=== PATIENT | female | born 1995 | race Caucasian/White ===

== ENCOUNTER 2018-03-17 22:25 | Emergency (ER) | payer BC ==
[~2018-03-17] VITALS: Ht 157.5 cm; Wt 104.3 kg
[2018-03-17 22:31] VITALS: Ht 157.5 cm; Wt 104.3 kg
[2018-03-17 23:00] LABS: BASOPHILS 0.4 % (0-2); EOSINOPHILS 2.7 % (0-7); HEMATOCRIT 40.8 % (36.0-48.0); HEMOGLOBIN 13.6 g/dL (12-16); IMMATURE GRANULOCYTES 0.2 % (0-5); MCH 28.3 pg (26.0-34.0); MCHC 33.3 g/dL (31.0-37.0); MEAN PLATELET VOLUME 10.8 fL (7.4-10.4); MONOCYTES 7.6 % (2-11); NEUTROPHILS 67.1 % (40-80); PLATELET COUNT 276 10x3/uL (130-400); RDW 13.3 % (11.5-14.5); WBC 10.3 10x3/uL (4.8-10.8)
[2018-03-17 23:08] LABS: APTT 26.3 SECONDS (22.8-39.4); INR 0.94 (0.85-1.17); PROTIME 12.2 SECONDS (11.6-15.0)
[2018-03-17 23:24] LABS: ALBUMIN 3.6 g/dL (3.4-5.0); ALKALINE PHOSPHATASE 67 U/L (46-116); ALT (SGPT) 24 U/L (10-68); BILIRUBIN - TOTAL 0.27 mg/dL (0.2-1.3); CALC OSMOLALITY 278 mosm/kg (275-300); CALCIUM 8.6 mg/dL (8.5-10.1); CARBON DIOXIDE 28.7 mmol/L (21.0-32.0); CHLORIDE - SERUM 106 mmol/L (98-107); CREATININE - SERUM 0.8 mg/dL (0.6-1.3); GLUCOSE 120 mg/dL (74-106); POTASSIUM - SERUM 4.5 mmol/L (3.5-5.1); PROTEIN - SERUM 7.1 g/dL (6.4-8.2); SODIUM 139 mmol/L (136-145); UREA NITROGEN 12 mg/dL (7-18); eGFR NON AFRICAN AMERICAN > 90 mL/min (90-120)
[2018-03-17 23:33] LABS: CKMB 0.3 U/L (0.0-3.6); CREATINE KINASE 57 UL (21-215); PRO BNP 35 pg/mL (0-125); TROPONIN-I < 0.017 ng/mL (0.000-0.060)
[2018-03-18] MEDS ORDERED: FLUTICASONE PRO16 GM NASAL (00:34)
[2018-03-18] MEDS ORDERED: OMNICEF300 MG PO (00:34)
[2018-03-18 00:45] VITALS: BP 138/77
== END 2018-03-18 00:45 | disposition home or self-care (01) ==
LOC: D.ER 22:25
PROVIDERS: Family Medicine
DX: J01.90 Acute sinusitis, unspecified (principal); R09.89 Other specified symptoms and signs involving the circulatory and respiratory systems; R05 Cough

== ENCOUNTER 2018-05-22 22:25 | Emergency (ER) | payer SELFPAY ==
[~2018-05-22] VITALS: Ht 157.5 cm; Wt 102.3 kg
[~2018-05-22 22:25] MED LIST: FLUTICASONE PRO16 GM NASAL; OMNICEF300 MG PO
[2018-05-22 22:47] VITALS: Ht 157.5 cm; Wt 102.3 kg
[2018-05-22 23:27] LABS: HEMOGLOBIN 13.9 g/dL (12-16); LYMPHOCYTES 23.1 % (15-50); MCH 28.1 pg (26.0-34.0); MCHC 33.9 g/dL (31.0-37.0); MCV 82.8 fL (80.0-100.0); MEAN PLATELET VOLUME 10.6 fL (7.4-10.4); NEUTROPHILS 67.8 % (40-80); PLATELET COUNT 283 10x3/uL (130-400); RBC 4.95 10x6/uL (4.00-5.40); RDW 12.7 % (11.5-14.5); WBC 8.1 10x3/uL (4.8-10.8)
[2018-05-22 23:31] LABS: HCG URINE NEGATIVE (NEGATIVE)
[2018-05-22 23:35] LABS: APPEARANCE CLOUDY (CLEAR); BILIRUBIN NEGATIVE (NEGATIVE); COLOR YELLOW (YELLOW); GLUCOSE NEGATIVE (NEGATIVE); KETONE NEGATIVE (NEGATIVE); NITRITE NEGATIVE (NEGATIVE); PROTEIN NEGATIVE (NEGATIVE); UROBILINOGEN NORMAL (NORMAL)
[2018-05-22 23:37] LABS: BACTERIA MODERATE /hpf (NONE SEEN); EPITHELIAL CELLS 0-5 /hpf (0-5); MUCUS >1+ /lpf (NONE SEEN); RED CELLS - URINE 0-5 /hpf (0-5); WHITE CELLS - URINE 0-5 /hpf (0-5)
[2018-05-22 23:45] LABS: ALBUMIN 3.8 g/dL (3.4-5.0); ALKALINE PHOSPHATASE 65 U/L (46-116); ALT (SGPT) 25 U/L (10-68); BILIRUBIN - TOTAL 0.27 mg/dL (0.2-1.3); CALC OSMOLALITY 280 mosm/kg (275-300); CALCIUM 9.2 mg/dL (8.5-10.1); CARBON DIOXIDE 21.9 mmol/L (21.0-32.0); CHLORIDE - SERUM 108 mmol/L (98-107); CREATININE - SERUM 0.7 mg/dL (0.6-1.3); GLUCOSE 101 mg/dL (74-106); POTASSIUM - SERUM 3.6 mmol/L (3.5-5.1); PROTEIN - SERUM 7.4 g/dL (6.4-8.2); SODIUM 141 mmol/L (136-145); UREA NITROGEN 13 mg/dL (7-18); eGFR NON AFRICAN AMERICAN > 90 mL/min (90-120)
[2018-05-22 23:49] LABS: AMYLASE - SERUM 38 U/L (25-115); LIPASE 148 U/L (73-393)
[2018-05-22 23:50] LABS: TROPONIN-I < 0.017 ng/mL (0.000-0.060)
[2018-05-23] MEDS ORDERED: OMEPRAZOLE20 M1 PO (01:19)
[2018-05-23 01:32] VITALS: BP 138/87
== END 2018-05-23 01:32 | disposition home or self-care (01) ==
LOC: D.ER 22:25
PROVIDERS: Family Medicine
DX: K21.9 Gastro-esophageal reflux disease without esophagitis (principal); R11.2 Nausea with vomiting, unspecified; R19.7 Diarrhea, unspecified

== ENCOUNTER 2018-05-30 17:22 | Emergency (ER) | payer SELFPAY ==
[~2018-05-30] VITALS: Ht 157.5 cm; Wt 102.3 kg
[~2018-05-30 17:22] MED LIST changes: +OMEPRAZOLE20 M1 PO
[2018-05-30 17:39] VITALS: BP 132/90; Ht 157.5 cm; Wt 102.3 kg
== END 2018-05-30 20:23 | disposition left against medical advice (07) ==
LOC: D.ER 17:22
DX: K13.79 Other lesions of oral mucosa (principal)